=== PATIENT | male | born 1995 | race Caucasian/White ===

== ENCOUNTER 2017-02-12 12:40 | Emergency (ER) | payer OTHER ==
[2017-02-12 12:58] VITALS: BP 125/79; PULSE 67; TEMP 98.3; BMI 21.1
[2017-02-12] MEDS ORDERED: diphenhydrAMINE HCL 25 MG CAPSULE (FP) PO ONE ×2 (14:22→14:31)
[2017-02-12] MEDS ORDERED: RANITIDINE HCL 150 MG TABLET (FP) PO ONE (14:22)
[2017-02-12] MEDS ORDERED: DEXAMETHASONE SOD PHOSPHATE 10 MG/1 ML VIAL IM ONE (14:23)
--- NOTE | 2017-02-12 14:28 | PDOC ---
History of Present Illness - General Chief Complaint: Allergic Reaction Stated Complaint: ALLERGIC REACTION Time Seen by Provider: 02/12/17 14:00 History Source: Patient, Parent(s) Exam Limitations: No Limitations - History of Present Illness Initial Comments: 02/12/17 14:30 went to [facility] 2 days ago who used a hair dye to his scalp that caused an itching and type of dermatitis. woke up this morning and his head was swollen worsening as he has been in the emergency department. is very itchy, used, liver oil to help resolve some of the itching last night without effect. Also took 2 Benadryl with minimal resolved. Patient denies swelling to lips, tongue, or airway problems. Has no history of ALLERGIES and has never experienced this kind of problem at [facility] Timing/Duration: unsure, 24 hours Severity: moderate Associated Symptoms: reports: denies symptoms. denies: cough, fever/chills, headaches, malaise, shortness of breath Past History - Travel Traveled outside of the country in the last 30 days: No Close contact w/someone who was outside of country & ill: No - Past Medical History Allergies/Adverse Reactions: Allergies Allergy/AdvReac Type Severity Reaction Status Date / Time cefprozil [From Cefzil] Allergy Verified 02/12/17 12:53 Home Medications: Ambulatory Orders Prednisone [Deltasone -] 20 mg PO BID #10 tablet 02/12/17 Asthma: Yes CVA: No COPD: No Thyroid Disease: No - Immunization History Immunization Up to Date: Yes - Suicide/Smoking/Psychosocial Hx Smoking History: Never smoked Have you smoked in the past 12 months: No Information on smoking cessation initiated: No Hx Alcohol Use: No Drug/Substance Use Hx: No Substance Use Type: None Review of Systems - Review of Systems Able to Perform ROS?: Yes Is the patient limited Kinyarwanda proficient: Yes Constitutional: Yes: Symptoms Reported, See HPI, Malaise. No: Fever HEENTM: Yes: Symptoms Reported, See HPI. No: Nose Congestion, Throat Pain, Throat Swelling, Difficulty Swallowing Respiratory: Yes: See HPI. No: Symptoms reported, Cough, Shortness of Breath, Wheezing Musculoskeletal: Yes: Symptoms Reported Integumentary: Yes: Symptoms Reported All Other Systems: Reviewed and Negative *Physical Exam - Vital Signs Last Vital Signs Temp Pulse Resp BP Pulse Ox 98.3 F 67 16 125/79 99 02/12/17 12:54 02/12/17 12:54 02/12/17 12:54 02/12/17 12:54 02/12/17 12:54 - Physical Exam General Appearance: Yes: Nourished, Appropriately Dressed, Apparent Distress, Mild Distress HEENT: positive: RAJ, Normal ENT Inspection, TMs Normal (CONGESTED , LANDMARKS EASILY VISULAIZXED ), Pharynx Normal. negative: Rhinorrhea, Sinus Tenderness Neck: positive: Supple, Lymphadenopathy (R), Lymphadenopathy (L) (tender and swollen AC chains ). negative: Tender Respiratory/Chest: positive: Lungs Clear, Normal Breath Sounds. negative: Chest Tender, Wheezing Cardiovascular: positive: Regular Rhythm, Regular Rate Gastrointestinal/Abdominal: positive: Soft Integumentary: positive: Dry, Other (erythema and well demarkated eruption to all of scalp[ at sites of dye/ with edema and tenderness to AC chains of ) Neurologic: positive: tile setter II-XII NML intact, Fully Oriented, Alert, Normal Mood/ Affect, Normal Response, Motor Strength 5/5 *DC/Admit/Observation/Transfer Diagnosis at time of Disposition: Contact dermatitis Qualifiers: Contact dermatitis type: allergic Contact dermatitis trigger: dye Qualified Code(s): L23.4 - Allergic contact dermatitis due to dyes - Discharge Dispostion Disposition: HOME Condition at time of disposition: Stable Admit: No - Referrals - Patient Instructions Printed Discharge Instructions: DI for Contact Dermatitis Additional Instructions: Rest, keep cool and dry- avoid strenuous activity or hot /humid environments Less hot showers, no abrasive soaps May use heavy creams like Eucerin or Cetaphil to keep skin moist May apply Aveeno, calamine lotion, [id number] hydrocortisone creams as needed for symptoms May use Benadryl at night for antihistamine, Zyrtec/ Sarah or Claritin for daytime antihistamine use to help with itching Continue Zantac/ Pepcid/ Tagamet 2 tabs every 8 horus for 2 days then as needed [id number] 20MG TWO TIMES A DAY STARTING TOMORROW FOR 5 DAYS May use [id number] hydrocortisone cream on all areas except face Try to identify cause for rash and avoid exposures Followup with PMD in one week if no resolution Make appointment with weld fitter for evaluation when possible - Post Discharge Activity Forms/Work/School Notes: Back to Work
[2017-02-12] MEDS ORDERED: RANITIDINE HCL 150 MG TABLET (FP) ONE (14:31)
[2017-02-12] MEDS ORDERED: DEXAMETHASONE SOD PHOSPHATE 10 MG/1 ML VIAL ONE (14:31)
== END 2017-02-12 14:41 | disposition home or self-care (01) ==
LOC: JERFT 12:40
PROC: 3E0233Z Introduction of Anti-inflammatory into Muscle, Percutaneous Approach (ICD-10-PCS; principal; 2017-02-12)
DX: L23.4 Allergic contact dermatitis due to dyes (principal)
CPT/HCPCS: 99281-25

== ENCOUNTER 2017-11-26 01:24 | Emergency (ER) | payer OTHER ==
[2017-11-26 02:45] VITALS: BP 152/87; PULSE 89; TEMP 98.2; BMI 22.4
--- NOTE | 2017-11-26 02:45 | PDOC ---
History of Present Illness - History of Present Illness Initial Comments: 11/26/17 03:00 Mr. Mckeon is a 22 yo male w/ pmh of Asthma who presents for evaluation of 1 day history of abdominal pain. Patient reports he has additionally had 2 days of his stomach feeling "funny." Symptoms started following smoking marijuana. Patient reports he has also been vomiting today, denies any blood but reports there has been yellow material in his vomitus. The patient denies chest pain, shortness of breath, headache and dizziness. Denies fever, chills, diarrhea and constipation. Denies dysuria, frequency, urgency and hematuria. <Jamie Morton - Last Filed: 11/26/17 06:02> <Bren Ferreira - Last Filed: 11/26/17 06:26> - General Chief Complaint: Nausea/Vomiting Stated Complaint: WEAKNESS/VOMITING Time Seen by Provider: 11/26/17 02:45 Past History - Past Medical History Asthma: Yes CVA: No COPD: No Thyroid Disease: No - Immunization History Immunization Up to Date: Yes - Suicide/Smoking/Psychosocial Hx Smoking History: Never smoked Have you smoked in the past 12 months: No Hx Alcohol Use: No Drug/Substance Use Hx: No Substance Use Type: None <Jamie Morton - Last Filed: 11/26/17 06:02> <Bren Ferreira - Last Filed: 11/26/17 06:26> - Past Medical History Allergies/Adverse Reactions: Allergies Allergy/AdvReac Type Severity Reaction Status Date / Time cefprozil [From Cefzil] Allergy Verified 11/26/17 02:43 Home Medications: Ambulatory Orders predniSONE [Deltasone -] 20 mg PO BID #10 tablet 02/12/17 Review of Systems - Review of Systems Comments:: 11/26/17 03:05 GENERAL/CONSTITUTIONAL: No fever or chills. No weakness. HEAD, EYES, EARS, NOSE AND THROAT: No change in vision. No ear pain or discharge. No sore throat. CARDIOVASCULAR: No chest pain or shortness of breath RESPIRATORY: No cough, wheezing, or hemoptysis. GASTROINTESTINAL: +N/V as described. No diarrhea or constipation. GENITOURINARY: No dysuria, frequency, or change in urination. MUSCULOSKELETAL: No joint or muscle swelling or pain. No neck or back pain. SKIN: No rash NEUROLOGIC: No headache, vertigo, loss of consciousness, or change in strength/ sensation. ENDOCRINE: No increased thirst. No abnormal weight change HEMATOLOGIC/LYMPHATIC: No anemia, easy bleeding, or history of blood clots. ALLERGIC/IMMUNOLOGIC: No hives or skin allergy. <Jamie Morton - Last Filed: 11/26/17 06:02> *Physical Exam - Physical Exam Comments: 11/26/17 03:06 GENERAL: Awake, alert, and fully oriented, in no acute distress HEAD: No signs of trauma, normocephalic, atraumatic EYES: PERRLA, EOMI, sclera anicteric, conjunctiva clear ENT: Auricles normal inspection, hearing grossly normal, nares patent, oropharynx clear without exudates. Moist mucosa NECK: Normal ROM, supple, no lymphadenopathy, JVD, or masses LUNGS: No distress, speaks full sentences, clear to auscultation bilaterally HEART: Regular rate and rhythm, normal S1 and S2, no murmurs, rubs or gallops, peripheral pulses normal and equal bilaterally. ABDOMEN: +Generalized abdominal TTP. Soft, normoactive bowel sounds. No guarding , no rebound. No masses EXTREMITIES: Normal inspection, Normal range of motion, no edema. No clubbing or cyanosis. NEUROLOGICAL: Cranial nerves II through XII grossly intact. Normal speech, normal gait, no focal sensorimotor deficits SKIN: Warm, Dry, normal turgor, no rashes or lesions noted. <Jamie Morton - Last Filed: 11/26/17 06:02> - Vital Signs Last Vital Signs Temp Pulse Resp BP Pulse Ox 98.2 F 89 18 152/87 99 11/26/17 02:43 11/26/17 02:43 11/26/17 02:43 11/26/17 02:43 11/26/17 02:43 <Bren Ferreira - Last Filed: 11/26/17 06:26> ED Treatment Course - LABORATORY CBC & Chemistry Diagram: 11/26/17 03:38 11/26/17 04:08 <Jamie Morton - Last Filed: 11/26/17 06:02> - LABORATORY CBC & Chemistry Diagram: 11/26/17 03:38 11/26/17 04:08 - ADDITIONAL ORDERS Additional order review: Laboratory Results 11/26/17 11/26/17 04:08 03:38 Sodium 139 Cancelled Potassium 3.9 Cancelled Chloride 107 Cancelled Carbon Dioxide 24 Cancelled Anion Gap 8 Cancelled BUN 14 Cancelled Creatinine 1.0 Cancelled Creat Clearance w eGFR > 60 Cancelled Random Glucose 117 H Cancelled Calcium 8.4 L Cancelled Total Bilirubin 0.4 Cancelled AST 19 Cancelled ALT 33 Cancelled Alkaline Phosphatase 74 Cancelled Total Protein 7.6 Cancelled Albumin 4.2 Cancelled 11/26/17 03:38 RBC 5.36 MCV 85.3 MCHC 34.9 RDW 12.4 MPV 10.0 Neutrophils % 86.7 H Lymphocytes % 8.8 Monocytes % 3.8 Eosinophils % 0.2 Basophils % 0.5 - Medications Given in the ED: ED Medications Discontinued Medications Generic Name Dose Route Start Last Admin Trade Name Freq PRN Reason Stop Dose Admin Sodium Chloride 1,000 mls @ 1,000 mls/hr 11/26/17 02:54 11/26/17 03:00 Normal Saline - IV 11/26/17 03:53 1,000 mls/hr ASDIR STA Administration Morphine Sulfate 4 mg 11/26/17 04:11 11/26/17 04:11 Morphine Injection - IVPUSH 11/26/17 04:12 4 mg ONCE ONE Administration Ondansetron HCl 4 mg 11/26/17 02:54 11/26/17 03:00 Zofran Injection IVPUSH 11/26/17 02:55 4 mg ONCE ONE Administration Ondansetron HCl 4 mg 11/26/17 04:10 11/26/17 04:10 Zofran Injection IVPUSH 11/26/17 04:11 4 mg ONCE ONE Administration <Bren Ferreira - Last Filed: 11/26/17 06:26> Medical Decision Making - Medical Decision Making 11/26/17 05:54 Mr. Mckeon is a 22 yo male w/ pmh as described who presents for evaluation of N/ V w/ abdominal pain after smoking marijuana. Patient given fluids and zofran 4mg for symptomatic relief. Further 4mg zofran and 4mg morphine given following this. Patient reporting generalized relief from symptoms. Patient labs grossly unconcerning. Discharging w/ instructions to f/u with PCP for further evaluation as needed and stop smoking marijuana as thought to be inciting factor. Patient verbalized understanding and agreement and will comply. Discharging to home. Laboratory Results - last 24 hr 11/26/17 11/26/17 11/26/17 03:38 03:38 04:08 WBC 13.1 H RBC 5.36 Hgb 16.0 Hct 45.7 MCV 85.3 MCH 29.8 MCHC 34.9 RDW 12.4 Plt Count 209 MPV 10.0 Absolute Neuts (auto) 11.3 H Neutrophils % 86.7 H Lymphocytes % 8.8 Monocytes % 3.8 Eosinophils % 0.2 Basophils % 0.5 Nucleated RBC % 0 Sodium Cancelled 139 Potassium Cancelled 3.9 Chloride Cancelled 107 Carbon Dioxide Cancelled 24 Anion Gap Cancelled 8 BUN Cancelled 14 Creatinine Cancelled 1.0 Creat Clearance w eGFR Cancelled > 60 Random Glucose Cancelled 117 H Calcium Cancelled 8.4 L Total Bilirubin Cancelled 0.4 AST Cancelled 19 ALT Cancelled 33 Alkaline Phosphatase Cancelled 74 Total Protein Cancelled 7.6 Albumin Cancelled 4.2 <Jamie Morton - Last Filed: 11/26/17 06:02> *DC/Admit/Observation/Transfer <Jamie Morton - Last Filed: 11/26/17 06:02> - Discharge Dispostion Decision to Admit order: No <Bren Ferreira - Last Filed: 11/26/17 06:26> Diagnosis at time of Disposition: Cannabinoid hyperemesis syndrome - Discharge Dispostion Disposition: HOME - Referrals Referrals: Tootie Siddiqui [Primary Care Provider] - - Patient Instructions Printed Discharge Instructions: DI for Vomiting -- Adult Additional Instructions: You were evaluated today in the ER for your nausea and vomiting. No emergent findings were found at this time. You reported relief from your symptoms after medication and fluids. Please follow-up with primary care provider in 1-2 days for further evaluation. Return to ER if any fever, chills, or return of pain or vomiting. - Post Discharge Activity Forms/Work/School Notes: Back to Work
[2017-11-26] MEDS ORDERED: ONDANSETRON 4 MG/2 ML VIAL IVPUSH ONE ×2 (02:54→04:10)
[2017-11-26] MEDS ORDERED: SODIUM CHLORIDE 1,000 ML IV STA (02:54)
[2017-11-26] MEDS ORDERED: ONDANSETRON 4 MG/2 ML VIAL ONE ×2 (03:21→04:14)
[2017-11-26] MEDS ORDERED: morphine CARPU-JECT 2 MG/1 ML DISP.SYRIN IVPUSH ONE (04:11)
[2017-11-26] MEDS ORDERED: morphine SULFATE 4 MG/ML VIAL ONE (04:13)
[2017-11-26 04:43] LABS: BASO % 0.5 % (0-2.0); EOS % 0.2 % (0-4.5); HEMATOCRIT 45.7 % (35.4-49); LYMPH % 8.8 % (8-40); MCH 29.8 pg (25.7-33.7); MCHC 34.9 g/dl (32.0-35.9); MEAN CELL VOLUME 85.3 fl (80-96); MONO % 3.8 % (3.8-10.2); NEUT % 86.7 % (42.8-82.8); PLATELET COUNT 209 K/MM3 (134-434); RBC 5.36 M/mm3 (4.00-5.60); RDW 12.4 % (11.9-15.9); WHITE BLOOD COUNT 13.1 K/mm3 (4.0-10.0)
[2017-11-26 05:00] LABS: ALBUMIN 4.2 g/dl (3.4-5.0); ALK PHOS 74 U/L (45-117); ANION GAP 8 MMOL/L (8-16); BILIRUBIN,TOTAL 0.4 mg/dL (0.2-1.0); BLOOD UREA NITROGEN 14 mg/dL (7-18); CALCIUM 8.4 mg/dL (8.5-10.1); CHLORIDE 107 mmol/L (98-107); CO2 24 mmol/L (21-32); GLUCOSE,RANDOM 117 mg/dL (74-106); POTASSIUM 3.9 mmol/L (3.5-5.1); SGOT/AST 19 U/L (15-37); SGPT/ALT 33 U/L (12-78); SODIUM 139 mmol/L (136-145); TOT PROT 7.6 g/dl (6.4-8.2)
--- NOTE | 2017-11-26 06:22 | PDOC ---
Attending Attestation - Resident Resident Name: Jamie Morton - ED Attending Attestation I have performed the following: I have examined & evaluated the patient, The case was reviewed & discussed with the resident, I agree w/resident's findings & plan - HPI HPI: 11/26/17 06:27 Pt comes with abd pain and vomiting. Exam is normal - Physicial Exam PE: 11/26/17 06:27 Agree with resident exam. - Medical Decision Making 11/26/17 06:28 Home with instructions to quit smoking pot.
== END 2017-11-26 06:28 | disposition home or self-care (01) ==
LOC: JER 01:24
PROC: 3E033GC Introduction of Other Therapeutic Substance into Peripheral Vein, Percutaneous Approach (ICD-10-PCS; principal; 2017-11-26)
PROC: 3E033GC Introduction of Other Therapeutic Substance into Peripheral Vein, Percutaneous Approach (ICD-10-PCS; 2017-11-26)
PROC: 3E033NZ Introduction of Analgesics, Hypnotics, Sedatives into Peripheral Vein, Percutaneous Approach (ICD-10-PCS; 2017-11-26)
DX: F12.988 Cannabis use, unspecified with other cannabis-induced disorder (principal)
CPT/HCPCS: 36415; 80053; 85025; 99282-25; J7030

== ENCOUNTER 2023-10-19 18:32 | Emergency (ER) | payer BC, OTHER ==
[2023-10-19 18:38] VITALS: BP 148/84; PULSE 85; RESP 18; TEMP 97.6; BMI 24.4
[2023-10-19] MEDS ORDERED: ACETAMINOPHEN INJECTION 100 ML IVPB ONE (20:41)
[2023-10-19] MEDS ORDERED: ONDANSETRON 4 MG/2 ML VIAL ONE (20:41)
[2023-10-19] MEDS ORDERED: HALOPERIDOL LACTATE 5 MG/ML ONE (20:44)
[2023-10-19] MEDS ORDERED: FAMOTIDINE 20 MG/50 ML IVPB 20 MG/50 ML MG IVPB ONE (20:46)
[2023-10-19 21:03] LABS: HEMATOCRIT 43.7 % (35.4-49); HEMOGLOBIN 15.1 GM/dL (11.7-16.9); MCH 29.4 pg (25.7-33.7); MCHC 34.5 g/dl (32.0-35.9); MEAN CELL VOLUME 85.3 fl (80-96); MEAN PLT VOLUME 9.4 fl (7.5-11.1); PLATELET COUNT 219 10^3/uL (134-434); RBC 5.12 M/mm3 (4.00-5.60); RDW 12.4 % (11.9-15.9); WHITE BLOOD COUNT 12.9 K/mm3 (4.0-10.0)
[2023-10-19] MEDS: FAMOTIDINE 20 MG/50 ML IVPB 20 MG/50 ML MG IVPB ONE (21:03)
[2023-10-19] MEDS: ONDANSETRON 4 MG/2 ML VIAL IVPUSH ONE (21:03)
[2023-10-19] MEDS: SODIUM CHLORIDE 0.9% 500 ML INFUS.BAG IV ONE (21:03)
[2023-10-19] MEDS: HALOPERIDOL LACTATE 5 MG/ML IM ONE (21:03)
[2023-10-19] MEDS: ACETAMINOPHEN 1000 MG/100 ML BAG IVPB ONE (21:04)
[2023-10-19 21:41] LABS: ANISOCYTOSIS 0; MACROCYTOSIS 0
[2023-10-19 21:49] LABS: POTASSIUM 3.7 mmol/L (3.5-5.1)
[2023-10-19 21:51] LABS: CALCIUM 9.6 mg/dL (8.5-10.1)
[2023-10-19 21:52] LABS: ALBUMIN 4.6 g/dl (3.4-5.0); BLOOD UREA NITROGEN 14.6 mg/dL (7-18)
[2023-10-19 21:55] LABS: CREATININE 1.1 mg/dL (0.55-1.3)
[2023-10-19 21:56] LABS: TOT PROT 8.4 g/dl (6.4-8.2)
[2023-10-19] MEDS ORDERED: METOCLOPRAMIDE HCL INJECTION 10 MG/2 ML VIAL ONE (22:32)
[2023-10-19] MEDS: METOCLOPRAMIDE HCL INJECTION 10 MG/2 ML VIAL IVPB ONE (22:41)
[2023-10-19] MEDS: DEXTROSE 5%-LACTATED RINGERS 1,000 ML IV SCH (22:41)
[2023-10-19 22:48] LABS: PH,URINE 7.5 (5.0-8.0); URINE APPEARANCE CLEAR; URINE BILIRUBIN NEGATIVE (NEGATIVE); URINE COLOR YELLOW; URINE GLUCOSE (UA) NEGATIVE (NEGATIVE); URINE KETONE 4+ (NEGATIVE); URINE LEUK ESTERASE NEGATIVE (NEGATIVE); URINE NITRITE NEGATIVE (NEGATIVE); URINE PROTEIN NEGATIVE (NEGATIVE); URINE UROBILINOGEN 0.2 mg/dL (0.2-1.0)
== END 2023-10-19 23:05 | disposition home or self-care (01) ==
LOC: JER 18:32
PROC: 3E033GC Introduction of Other Therapeutic Substance into Peripheral Vein, Percutaneous Approach (ICD-10-PCS; principal; 2023-10-19)
PROC: 3E033GC Introduction of Other Therapeutic Substance into Peripheral Vein, Percutaneous Approach (ICD-10-PCS; 2023-10-19)
PROC: 3E033GC Introduction of Other Therapeutic Substance into Peripheral Vein, Percutaneous Approach (ICD-10-PCS; 2023-10-19)
PROC: 3E023GC Introduction of Other Therapeutic Substance into Muscle, Percutaneous Approach (ICD-10-PCS; 2023-10-19)
DX: R10.13 Epigastric pain (principal); R11.2 Nausea with vomiting, unspecified; Z20.822 Contact with and (suspected) exposure to COVID-19
CPT/HCPCS: 0241U-QW; 36415; 76705-TC; 76775-TC; 80053; 81003; 83690; 85025; 87086; 93005; 93010; 99285-25; J0131